=== PATIENT | male | born 1980 | race Caucasian/White ===

== ENCOUNTER 2019-07-14 17:48 | Emergency (ER) | payer SELFPAY ==
[~2019-07-14] VITALS: Ht 175 cm; Wt 93.4 kg
[2019-07-14] MEDS ORDERED: PROAIR (17:53)
[2019-07-14] MEDS ORDERED: LISI10TA2 (17:53)
[2019-07-14] MEDS ORDERED: ASPIRIN 81 MG CHEW (CHILDREN'S ASA) PO ONE (18:15)
--- NOTE | 2019-07-14 18:24 | ED Chest Pain ---
General Chief Complaint: Chest Pain Stated Complaint: CP Nursing Triage Note: ARRIVED VIA EMS. STATES HE HAS BEEN HAVING LEFT ARM TINGLING X3 DAYS. TODAY WHILE WORKING ON FENCE HE STARTED HAVING CHEST PAIN THAT RADIATED TO LEFT SHOULDER. Nursing Sepsis Screen: No Definite Risk Source: patient, other (and coworkers) Exam Limitations: no limitations History of Present Illness Date Seen by Provider: Jul 14, 2019 Time Seen by Provider: 18:05 Initial Comments The Patient presents to ER by EMS from work with chief complaint of 3 days left shoulder pain and tingling going down to his left hand. He says he woke up from sleep with it and it's been constant ever since but comes and goes, worse with laying on it. No previous history of neck injury. He has had torn ligaments in his knees repaired surgically. No surgeries on his back. No familial history of coronary disease. He smokes cigarettes, chews and denies drinking or recreational drug use. He does not endorse hypertension, hyperlipidemia, diabetes. He does have a history 3 months ago for clot in his right arm. He is not on blood thinners presently. He's not having any shortness of breath but he does occasionally have wheezing. He does have lisinopril historically prescribed him. He received aspirin and a dose of nitroglycerin en route by EMS which took his pain away completely. 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 Allergies and Home Medications Allergies Coded Allergies: No Known Drug Allergies (Unverified , 07/14/19) Patient Home Medication List Home Medication List Reviewed: Yes Review of Systems Review of Systems Constitutional: No chills, No diaphoresis EENTM: No Blurred Vision, No Double Vision Respiratory: Denies Cough, Denies Shortness of Air Cardiovascular: See HPI, Chest Pain; Denies Edema, Denies Irregular Heart Rate, Denies Lightheadedness Gastrointestinal: Denies Constipated, Denies Diarrhea, Denies Nausea Genitourinary: Denies Burning, Denies Discharge Musculoskeletal: see HPI; No back pain; joint pain (left shoulder), neck pain (left lateral neck at C4-C5 and trapezius) Skin: No pruritus, No rash Psychiatric/Neurological: Denies Headache, Denies Numbness; Paresthesia (left upper extremity) Hematologic/Lymphatic: See HPI; Denies Anemia; Blood Clots; Denies Easy Bleeding, Denies Easy Bruising All Other Systems Reviewed Negative Unless Noted: Yes Past Kbygadb-Mkklev-Uqewke Hx Patient Social History Alcohol Use: Occasionally Uses Recreational Drug Use: Yes Drug of Choice: POT Smoking Status: Current Everyday Smoker Type Used: Cigarettes, Smokeless Tobacco Recent Foreign Travel: No Contact w/Someone Who Travel: No Recent Infectious Disease Expo: No Recent Hopitalizations: No Seasonal Allergies Seasonal Allergies: No Past Medical History Surgeries: Yes Orthopedic Respiratory: Yes Asthma Cardiac: Yes Hypertension Neurological: No Genitourinary: No Gastrointestinal: No Musculoskeletal: No Endocrine: No HEENT: No Cancer: No Psychosocial: No Integumentary: No Physical Exam Vital Signs Vital Signs - First Documented 07/14/19 17:48 Temp 37.0 Pulse 91 Resp 16 B/P (MAP) 150/98 (115) Pulse Ox 98 O2 Delivery Room Air Capillary Refill : Less Than 3 Seconds Height, Weight, BMI Height: '" Weight: lbs. oz. kg; 30.00 BMI Method: General Appearance: No Apparent Distress, WD/WN HEENT: PERRL/EOMI, TMs Normal, Normal ENT Inspection, Moist Mucous Membranes, Pharyngeal Erythema (mild) Neck: Full Range of Motion, Normal Inspection, Supple, Tender Lateral (left sided C4 through C5) Respiratory: No Accessory Muscle Use, No Respiratory Distress, Wheezing (inspiratory bilateral) Cardiovascular: Regular Rate, Rhythm, Normal Peripheral Pulses Gastrointestinal: Normal Bowel Sounds, Non Tender, Soft Extremity: Normal Capillary Refill, Normal Inspection, Normal Range of Motion, No Pedal Edema, Other (tenderness reproduced over left acromioclavicular joint, trapezius as well as abduction of the left upper extremity) Neurologic/Psychiatric: Alert, Oriented x3, No Motor/Sensory Deficits Skin: Normal Color, Warm/Dry Progress/Results/Core Measures Results/Orders Lab Results Laboratory Tests Test 07/14/19 17:50 Range/Units White Blood Count 9.1 4.3-11.0 10^3/uL Red Blood Count 4.70 4.35-5.85 10^6/uL Hemoglobin 15.4 13.3-17.7 G/DL Hematocrit 44 40-54 % Mean Corpuscular Volume 94 80-99 FL Mean Corpuscular Hemoglobin 33 25-34 PG Mean Corpuscular Hemoglobin Concent 35 32-36 G/DL Red Cell Distribution Width 13.1 10.0-14.5 % Platelet Count 217 130-400 10^3/uL Mean Platelet Volume 11.1 H 7.4-10.4 FL Neutrophils (%) (Auto) 55 42-75 % Lymphocytes (%) (Auto) 37 12-44 % Monocytes (%) (Auto) 7 0-12 % Eosinophils (%) (Auto) 1 0-10 % Basophils (%) (Auto) 0 0-10 % Neutrophils # (Auto) 5.0 1.8-7.8 X 10^3 Lymphocytes # (Auto) 3.4 1.0-4.0 X 10^3 Monocytes # (Auto) 0.7 0.0-1.0 X 10^3 Eosinophils # (Auto) 0.1 0.0-0.3 10^3/uL Basophils # (Auto) 0.0 0.0-0.1 10^3/uL Prothrombin Time 13.1 12.2-14.7 SEC INR Comment 1.0 0.8-1.4 Activated Partial Thromboplast Time 28 24-35 SEC D-Dimer < 0.27 0.00-0.49 UG/ML Sodium Level 140 135-145 MMOL/L Potassium Level 4.1 3.6-5.0 MMOL/L Chloride Level 106 98-107 MMOL/L Carbon Dioxide Level 24 21-32 MMOL/L Anion Gap 10 5-14 MMOL/L Blood Urea Nitrogen 20 H 7-18 MG/DL Creatinine 0.99 0.60-1.30 MG/DL Estimat Glomerular Filtration Rate > 60 BUN/Creatinine Ratio 20 Glucose Level 92 70-105 MG/DL Calcium Level 9.5 8.5-10.1 MG/DL Corrected Calcium 8.5-10.1 MG/DL Magnesium Level 2.3 1.6-2.4 MG/DL Total Bilirubin 0.4 0.1-1.0 MG/DL Aspartate Amino Transf (AST/SGOT) 25 5-34 U/L Alanine Aminotransferase (ALT/SGPT) 26 0-55 U/L Alkaline Phosphatase 51 40-136 U/L Myoglobin 83.5 10.0-92.0 NG/ML Troponin I < 0.028 <0.028 NG/ML Total Protein 7.3 6.4-8.2 GM/DL Albumin 4.6 H 3.2-4.5 GM/DL My Orders Orders - KAMERON DAILEY Cbc With Automated Diff (07/14/19 18:07) Magnesium (07/14/19 18:07) Chest 1 View, Ap/Pa Only (07/14/19 18:07) Ekg Tracing (07/14/19 18:07) Comprehensive Metabolic Panel (07/14/19 18:07) Myoglobin Serum (07/14/19 18:07) Protime With Inr (07/14/19 18:07) Partial Thromboplastin Time (07/14/19 18:07) O2 (07/14/19 18:07) Monitor-Rhythm Ecg Trace Only (07/14/19 18:07) Lipid Panel (07/15/19 06:00) Ed Iv/Invasive Line Start (07/14/19 18:07) Fibrin Degradation Products (07/14/19 18:07) Troponin I (07/14/19 18:07) Aspirin Chewable Tablet (Baby Aspirin Ch (07/14/19 18:15) Albuterol/Ipra Inhalation Soln (Duoneb I (07/14/19 18:30) Svn Small Volume Nebulizer (07/14/19 18:18) Vital Signs/I&O 07/14/19 07/14/19 17:48 18:00 Temp 37.0 Pulse 91 Resp 16 B/P (MAP) 150/98 (115) Pulse Ox 98 O2 Delivery Room Air Room Air Blood Pressure Mean: 115 Progress Progress Note #1: Time: 18:24 Progress Note Musculoskeletal?. He does have some risk factors including smoking and history of previous blood clot. We'll get a d-dimer since he is at intermediate risk. Chest x-ray and a DuoNeb. Bronchitis versus reactive airway disease?. Progress Note #2: Time: 19:04 Progress Note Bronchospasms are relieved with DuoNeb and do not relieve his shoulder pain or paresthesias. Suspect he has nerve impingement from inflammation in his shoulder and trapezius region. We'll put him on 2 weeks of NSAIDs and muscle relaxants. We have discussed chiropractics etc. We've given patient return precautions. He is happy with this plan. Toradol and Norflex tonight. 40 pound weight restriction. Initial ECG Impression Date: Jul 14, 2019 Initial ECG Impression Time: 17:50 Initial ECG Rate: 71 Initial ECG Rhythm: Normal Sinus Initial ECG Intervals: Normal Initial ECG Impression: Normal, Nonspecific Changes Initial ECG Comparisson: No Previous ECG Available Comment Sinus rhythm without ST elevation or depression. Diagnostic Imaging Diagonstic Imaging: Xray Plain Films/CT/US/NM/MRI: chest (1v) Comments [facility] [place] NAME: [facility] REC#: [id number] PT STATUS: REG ER : 1980 PHYSICIAN: KAMERON DAILEY MD ADMIT DATE: 07/14/19/ER Draft Date of Exam:07/14/19 CHEST 1 VIEW, AP/PA ONLY INDICATION: Left arm tingling. FINDINGS: The heart size, mediastinal configuration, and pulmonary vascularity are within normal limits. There is no pleural effusion, pneumothorax, or pneumonia. The osseous structures are unremarkable. IMPRESSION: No acute cardiopulmonary abnormality. 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 Decision time for Depature: 19:06 Referrals: NO,LOCAL PHYSICIAN (PCP/Family) Primary Care Physician Patient Instructions: Shoulder Bursitis (DC), Shoulder Bursitis Exercises Add. Discharge Instructions: Stretch your shoulders out, get a massage and use a chiropractor as necessary. The pain in your shoulder is caused by impingement of tendons rubbing against an irritated/inflamed bursa. Refer to the handout for more information. As the nerves run near the tendons they will be irritated by the inflammation and cause a pins and needle sensation. Topical creams such as icy hot or Biofreeze are recommended. Heat applied generously especially at nighttime is recommended. Do not lift more than 40 pounds for the next week. Cyclobenzaprine is a muscle relaxant which may help if your shoulder or neck is in spasm. It may cause drowsiness. If you wake up drowsy then you may consider taking only half a tablet at a time. Start taking the naproxen 500 mg twice a day on a scheduled basis for the next 2 weeks for its anti-inflammatory and pain relief properties. You may also alternatively use ibuprofen 800 mg 3 times a day or roxg-ibm-[id number] naproxen 2 tablets twice a day for similar effect. In addition to the NSAIDs you may use Tylenol, 1000 mg every 8 hours as needed for breakthrough pain. If you have new or worsening pain or other worrisome symptoms then you should return to the nearest ER. If at the end of 2 weeks or still having significant pain or disability then you should consider following up with your primary care doctor to discuss steroids, physical therapy etc. Alternatively you may use urgent care or the emergency room if you're away from home. All discharge instructions reviewed with patient and/or family. Voiced joyce kilpatrick. Scripts Naproxen (Naprosyn) 500 Mg Tablet 500 MG PO BID for 14 Days, #30 TAB 0 Refills Prov: KAMERON DAILEY 07/14/19 Cyclobenzaprine HCl (Cyclobenzaprine HCl) 10 Mg Tablet 10 MG PO Q8H PRN for SPASMS, #15 TAB 0 Refills Prov: KAMERON DAILEY 07/14/19 Work/School Note: Work Release Form Date Seen in the Emergency Department: Jul 14, 2019 Return to Work: Jul 15, 2019 Restrictions: Need Release from Doctor Other Restrictions Listed Below: 40 pound weight restriction on lifting until 07/23/19. KAMERON DAILEY Jul 14, 2019 18:24
[2019-07-14 18:25] LABS: PROTHROMBIN TIME PATIENT 13.1 SEC (12.2-14.7)
[2019-07-14] MEDS ORDERED: RT-ALBUTEROL/IPRATROPIUM 3 ML (DUONEB) VIAL INH ONE (18:30)
--- NOTE | 2019-07-14 18:35 | Diagnostic Imaging Report ---
INDICATION: Left arm tingling. FINDINGS: The heart size, mediastinal configuration, and pulmonary vascularity are within normal limits. There is no pleural effusion, pneumothorax, or pneumonia. The osseous structures are unremarkable. IMPRESSION: No acute cardiopulmonary abnormality. Dictated by: Dictated on workstation # [id number]
[2019-07-14 18:36] LABS: ALANINE AMINOTRANSFERASE 26 U/L (0-55); ALBUMIN 4.6 GM/DL (3.2-4.5); ALKALINE PHOSPHATASE 51 U/L (40-136); BILIRUBIN,TOTAL 0.4 MG/DL (0.1-1.0); BUN/CREATININE RATIO 20; CALCIUM 9.5 MG/DL (8.5-10.1); CARBON DIOXIDE 24 MMOL/L (21-32); CHLORIDE 106 MMOL/L (98-107); CREATININE SERUM 0.99 MG/DL (0.60-1.30); GFR ESTIMATED > 60; GLUCOSE 92 MG/DL (70-105); MAGNESIUM 2.3 MG/DL (1.6-2.4); POTASSIUM 4.1 MMOL/L (3.6-5.0); SODIUM 140 MMOL/L (135-145); TOTAL PROTEIN 7.3 GM/DL (6.4-8.2)
[2019-07-14 18:58] LABS: BASOPHILS % (AUTO) 0 % (0-10); EOSINOPHILS # (AUTO) 0.1 10^3/uL (0.0-0.3); EOSINOPHILS % (AUTO) 1 % (0-10); HEMATOCRIT 44 % (40-54); HEMOGLOBIN 15.4 G/DL (13.3-17.7); LYMPHOCYTES # (AUTO) 3.4 X 10^3 (1.0-4.0); LYMPHOCYTES % (AUTO) 37 % (12-44); MEAN CORPUSCULAR HEMOGLOBIN 33 PG (25-34); MEAN CORPUSCULAR HGB CONC 35 G/DL (32-36); MEAN CORPUSCULAR VOLUME 94 FL (80-99); MEAN PLATELET VOLUME 11.1 FL (7.4-10.4); MONOCYTES # (AUTO) 0.7 X 10^3 (0.0-1.0); MONOCYTES % (AUTO) 7 % (0-12); NEUTROPHILS % (AUTO) 55 % (42-75); PLATELET COUNT 217 10^3/uL (130-400); RED CELL DISTRIBUTION WIDTH 13.1 % (10.0-14.5); WHITE BLOOD COUNT 9.1 10^3/uL (4.3-11.0)
[2019-07-14] MEDS ORDERED: NAPR-1071 PO (19:10)
[2019-07-14] MEDS ORDERED: CYCL10TA9 PO (19:10)
[2019-07-14 19:15] VITALS: BP 140/104
[2019-07-14] MEDS ORDERED: ORPHENADRINE 60 MG/2 ML (NORFLEX) AMP IV ONE (19:15)
[2019-07-14] MEDS ORDERED: KETOROLAC 30 MG/ML VIAL IVP ONE (19:15)
== END 2019-07-14 19:15 | disposition home or self-care (01) ==
LOC: ER 17:49
DX: M75.52 Bursitis of left shoulder (principal); G56.92 Unspecified mononeuropathy of left upper limb; F17.210 Nicotine dependence, cigarettes, uncomplicated; F17.220 Nicotine dependence, chewing tobacco, uncomplicated
CPT/HCPCS: 36415; 71045; 80053; 83735; 83874; 84484; 85025; 85379; 85610; 85730; 93005; 93041